=== PATIENT | male | born 1960 | race Caucasian/White ===

== ENCOUNTER 2022-01-08 17:06 | Emergency (ER) | payer SELFPAY ==
[2022-01-08] MEDS ORDERED: Dexamethasone 10 MG/ML VIAL ONE (17:53)
== END 2022-01-08 18:19 | disposition home or self-care (01) ==
LOC: BURERS 17:06
DX: L03.114 Cellulitis of left upper limb (principal); L03.113 Cellulitis of right upper limb; L25.9 Unspecified contact dermatitis, unspecified cause; E11.9 Type 2 diabetes mellitus without complications; K21.9 Gastro-esophageal reflux disease without esophagitis; E78.5 Hyperlipidemia, unspecified; E78.00 Pure hypercholesterolemia, unspecified
CPT/HCPCS: 96372; 99283; J1100